=== PATIENT | female | born 1975 | race Caucasian/White ===

== ENCOUNTER → 2017-02-26 | Outpatient (CLI) | payer BC | END | disposition home or self-care (01) | LOC: LABMAIN 19:42 | PROVIDERS: ATTEND Obstetrics & Gynecology | DX: Z53.9 Procedure and treatment not carried out, unspecified reason (principal) ==

== ENCOUNTER 2017-03-06 06:32 | Day surgery (SDC) | payer BC ==
[2017-02-26 12:06] VITALS: BMI 35.5
--- NOTE | 2017-03-05 19:39 | P.HPOB ---
History of Present Illness H&P Date: 03/05/17 Chief Complaint: Menorrhagia with irregular cycle, family planning This is a 42-year-old female 2 para 2 who presents for dilation and curettage with hysteroscopy and NovaSure endometrial ablation along with gas manager scopic bilateral tubal ligation via fulguration. She is been having irregular bleeding since December. It is sometimes heavy and sometimes light that she always has to wear a pad. Her menses are occurring monthly lasting at least 7 days with 3 days of heavy flow that has worsened over the last year. She has to change a pad and tampon at least every 2 hours. She had an ultrasound done on 01/23/2017 that showed a uterus measuring 9 x 4.4 x 5.2 cm. There is an echogenic structure seen within the tip of the cervix measuring 1.4 x 1.6 x 1.7 cm that could represent a cervical polyp. Both ovaries were normal sized. She wishes definitive surgical treatment to control her heavy bleeding and irregular spotting. She also wishes permanent sterilization. Obstetrical history: . History of 2 vaginal deliveries. Gynecologic history: No history of sexual transmitted diseases. She currently uses withdrawal method for control. Social history: She is . 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 Review of Systems Constitutional: Denies chills, Denies fever Eyes: denies blurred vision, denies pain Ears, nose, mouth and throat: Denies headache, Denies sore throat Cardiovascular: Denies chest pain, Denies shortness of breath Respiratory: Denies cough Gastrointestinal: Denies abdominal pain, Denies diarrhea, Denies nausea, Denies vomiting Genitourinary: Reports dysmenorrhea, Reports menorrhagia Menstruation: Reports menses 8 or > days, Reports menses variable, Reports period heavy Musculoskeletal: Reports low back pain Integumentary: Denies pruritus, Denies rash Neurological: Denies numbness, Denies weakness Psychiatric: Denies anxiety, Denies depression Past Medical History Past Medical History: Hypertension History of Any Multi-Drug Resistant Organisms: None Reported Past Surgical History: Orthopedic Surgery Additional Past Surgical History / Comment(s): achilles tendon lengthening x 2 as and child; benign cyst removal from head Past Anesthesia/Blood Transfusion Reactions: No Reported Reaction Past Psychological History: No Psychological Hx Reported Smoking Status: Former smoker Past Alcohol Use History: None Reported Past Drug Use History: None Reported - Past Family History Mother Family Medical History: Deep Vein Thrombosis (DVT) Father Family Medical History: Cancer Additional Family Medical History / Comment(s): Liver CA Medications and Allergies Home Medications Medication Instructions Recorded Confirmed Type Losartan-Hctz 50-12.5 mg [Hyzaar 1 each PO DAILY 02/26/17 02/26/17 History 50-12.5] Multivitamin [Multivitamins Adult 1 each PO DAILY 02/26/17 02/26/17 History Gummies] Allergies Allergy/AdvReac Type Severity Reaction Status Date / Time No Known Allergies Allergy Verified 02/26/17 11:44 Exam Osteopathic Statement: *. No significant issues noted on an osteopathic structural exam other than those noted in the History and Physical/Consult. HEENT: Within normal limits Heart: Regular rate and rhythm Lungs: Clear to auscultation bilaterally Abdomen: Soft, nontender Pelvic exam: Uterus is small, mid position, with no adnexal masses or tenderness palpated. No cervical polyp is visualized. Extremities: Negative Homans Assessment and Plan (1) Menorrhagia with irregular cycle Status: Acute (2) Family planning Status: Acute Plan: Plan is to proceed with dilation and curettage with hysteroscopy and NovaSure endometrial ablation along with laparoscopic bilateral tubal ligation via fulguration. I have discussed the risks, benefits, and alternative therapies for the above- mentioned procedure and for both sedation/anesthesia as well as necessary blood products administration, if indicated, as they pertain to this patient. The patient has indicated her understanding and acceptance of the risks and procedures discussed.
[~2017-03-06 06:32] MED LIST: DEXAMETHASONE SOD PHOSPHATE 10 MG/ML 1 ML VIAL IV ONE; HYDROmorphone 0.5 MG/0.5 ML SYRINGE IVP PRN; LACTATED RINGERS 1,000 ML IV SCH; MIDAZOLAM 2 MG/2 ML VIAL IV PRN; Pre Op ABX Message 1 EACH MISC MISCELLANE ONE; SCOPOLAMINE 1.5MG/72HR PATCH TRANSDERM ONE
[2017-03-06] MEDS ORDERED: LIDOCAINE 1% 20 ML VIAL (10MG/ML) FOR IV START INTRADERMA ONE (06:55)
[2017-03-06] MEDS: ONDANSETRON 4 MG/2 ML VIAL IVP ONE ×2 (07:03→09:56)
[2017-03-06] MEDS ORDERED: GLYCOPYRROLATE 0.2 MG/ML 2 ML VIAL ONE (07:34)
[2017-03-06] MEDS ORDERED: KETOROLAC 30 MG/ML 1 ML VIAL ONE (07:34)
[2017-03-06] MEDS ORDERED: ROCURONIUM BROMIDE 10 MG/ML 10 ML VIAL IV ONE (07:34)
[2017-03-06] MEDS ORDERED: fentaNYL (PF) 50 MCG/ML 2 ML AMP ONE (07:34)
[2017-03-06] MEDS ORDERED: MIDAZOLAM 2 MG/2 ML VIAL ONE (07:34)
[2017-03-06] MEDS ORDERED: LIDOCAINE 1% INJ 10MG/ML (20 ML MDV) ONE (07:34)
[2017-03-06] MEDS ORDERED: NEOSTIGMINE 1 MG/ML 10 ML VIAL ONE (07:34)
[2017-03-06] MEDS ORDERED: PROPOFOL 10 MG/ML 20 ML VIAL IV ONE (07:34)
[2017-03-06] MEDS ORDERED: SUCCINYLCHOLINE CHLORIDE 100 MG/5 ML SYR IV ONE (07:34)
[2017-03-06] MEDS ORDERED: BUPIVACAINE (PF) 0.25% 30 ML VIAL SQ ONE ×2 (08:02→08:27)
[2017-03-06] MEDS ORDERED: LACTATED RINGERS 1,000 ML IV ONE ×2 (08:18)
--- NOTE | 2017-03-06 08:33 | P.OP ---
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 She is been having irregular bleeding since December. It is sometimes heavy and sometimes light that she always has to wear a pad. Her menses are occurring monthly lasting at least 7 days with 3 days of heavy flow that has worsened over the last year. She has to change a pad and tampon at least every 2 hours. She had an ultrasound done on 01/23/2017 that showed a uterus measuring 9 x 4.4 x 5.2 cm. There is an echogenic structure seen within the tip of the cervix measuring 1.4 x 1.6 x 1.7 cm that could represent a cervical polyp. Both ovaries were normal sized. She wishes definitive surgical treatment to control her heavy bleeding and irregular spotting. She also wishes permanent sterilization. Operative Findings: Uterus is anteverted, with no adnexal masses palpated. Cervix is sounded to 3 cm and uterus is sounded to 9 cm. Upon hysteroscopy, as slightly dyssynchronous endometrial pattern is noted with the left tubal ostia visualized in the right tubal ostia not visualized. No specific polyps or fibroids are visualized. A minimal amount of endometrial curettings is obtained. On laparoscopy, uterus tubes and ovaries appeared normal. Appendix is visualized and appears normal. Description of Procedure: The patient is taken to the operating room. She is placed in the dorsal lithotomy position after general anesthesia was given. She is prepped and draped in the normal sterile fashion. Bladder is drained with a catheter and then removed. Pelvic exam is performed under anesthesia. Uterus is found to be anteverted with no adnexal masses. She is placed in slight Trendelenburg position. A right angle retractor is used to visualize the cervix. The anterior lip of the cervix is grasped with a single-tooth tenaculum. Cervix is sounded to 3 cm. Uterus is sounded to 9 cm. Cervix is gently dilated with Moreno dilators until a hysteroscope could be passed. Hysteroscopy is performed using normal saline. The above noted findings are noted. Next a polyp forceps is introduced. And a minimal amount of tissue was obtained. Next medium-sized size sharp curette was placed. A minimal to moderate amount of endometrial curettings were obtained. Next NovaSure array was inserted into the endometrial cavity. Length was set at 6 cm and width was determined to be 3.4 cm. Next cavity assessment was completed and passed on the first try. Next NovaSure array was fired at 112 W for 82 seconds. Next the array was removed, inspected and then discarded. Next the hysteroscope was reinserted. Uniform charring was noted. Pictures were taken. Hysteroscope was removed. Next a kroner uterine manipulator is inserted through the cervix and the balloon is inflated. Single-tooth tenaculum was removed from the anterior lip of the cervix. Minimal bleeding was noted. All other instruments removed from the vagina. Gloves are changed and then attention is turned to the abdomen. The infraumbilical fold was grasped in transverse fashion with 2 Allis clamps. A small transverse incision was made with a scalpel. A hemostat was used to carry the incision down to the underlying layer of fascia. A towel clip was placed above the umbilicus for retraction. An 11 mm disposable bladeless trocar was then inserted into the peritoneal cavity under direct visualization. Once inside, pneumoperitoneum was achieved with CO2 gas. The insert was removed and the camera was placed. Intraperitoneal placement was confirmed. No bleeding was noted. Next the patient was placed in Trendelenburg position. A small stab incision was made suprapubically and a 5 mm disposable bladeless trocar was inserted into the peritoneal cavity under direct visualization. Once inside pelvic contents were inspected. Next a bipolar Kleppinger instrument was placed through the inferior trocar and the midportion of each tube was brought away from other structures and completely fulgurated on approximate 2-3 cm segment of each tube. Excellent hemostasis was noted. A picture was taken. Pneumoperitoneum was released after the inferior trocar was removed under direct visualization. The upper trocar was then removed. The fascial incision was closed with 0 Vicryl suture in interrupted [id number] stitch. The skin incisions were then closed with 4-0 Vicryl suture in a subcuticular fashion. Next the kroner uterine manipulator was removed. Minimal bleeding was noted. All sponge and needle counts are correct. The patient is then taken to recovery room in stable condition.
[2017-03-06 08:50] VITALS: TEMP 97
[2017-03-06] MEDS: MEPERIDINE 50 MG/ML SYRINGE IVP ONE ×2 (08:56→09:13)
[2017-03-06 09:28] VITALS: RESP 18
[2017-03-06 10:44] VITALS: BP 131/73; PULSE 63
== END 2017-03-06 10:51 | disposition home or self-care (01) ==
LOC: OR 06:32
PROVIDERS: ATTEND Obstetrics & Gynecology
DX: Z30.2 Encounter for sterilization (principal); N92.0 Excessive and frequent menstruation with regular cycle; N72 Inflammatory disease of cervix uteri; N85.00 Endometrial hyperplasia, unspecified; I10 Essential (primary) hypertension; Z87.891 Personal history of nicotine dependence; Z79.899 Other long term (current) drug therapy
CPT/HCPCS: 81025; 88305; 58670; 58563; J2250; J1100; J2710; J2175; J2405; J2001; J3010; J1885; J0330; J2704

== ENCOUNTER → 2019-03-21 | Outpatient (CLI) | payer BC ==
--- NOTE | 2019-03-21 08:56 | XR ---
EXAMINATION TYPE: XR foot complete bilateral DATE OF EXAM: 03/21/2019 CLINICAL HISTORY: Pain bilateral feet were healed. TECHNIQUE: Frontal, lateral, and oblique images of the bilateral feet are obtained. COMPARISON: None FINDINGS: Right foot shows moderate to severe inferior calcaneal spur. Small to moderate-sized superi or calcaneal spur with additional calcifications along the course of the Achilles tendon is likely ne ar the myotendinous junction. Left foot shows moderate to severe spurring inferiorly with small super ior spur with more focal calcification level of the distal Achilles tendon. There is flexion and varus positioning distal third through fifth toes on the left and flexion distal third through fifth toes on the right. Accessory ossicle is present near the navicular bone on the r ight and near cuboid bone on the left. Overlying soft tissues are unremarkable bilaterally. IMPRESSION: As above.
== END ==
LOC: RADXRYALE 08:37
PROVIDERS: ATTEND Family Medicine
DX: M77.32 Calcaneal spur, left foot (principal); M77.31 Calcaneal spur, right foot; M79.89 Other specified soft tissue disorders

== ENCOUNTER → 2022-02-21 | Outpatient (CLI) | payer BC ==
--- NOTE | 2022-02-21 16:14 | XR ---
EXAMINATION TYPE: XR abdomen 2V DATE OF EXAM: 02/21/2022 CLINICAL HISTORY: Right-sided pain TECHNIQUE: Supine and upright views of the abdomen are obtained. COMPARISON: None. FINDINGS: Scattered gas is seen in non-distended small bowel loops. Gas and fecal material is seen in non-distended colon and rectum. There is no visceromegaly, pneumoperitoneum, or abnormal calcifi cation appreciated. The lung bases are clear and the osseous structures are intact. IMPRESSION: Overall nonobstructive bowel gas pattern.
== END | disposition home or self-care (01) ==
LOC: RADXRYALE 15:44
PROVIDERS: ATTEND Physician Assistant Medical
DX: R10.11 Right upper quadrant pain (principal)
CPT/HCPCS: 74019

== ENCOUNTER → 2022-11-16 | Outpatient (CLI) | payer BC ==
--- NOTE | 2022-11-16 08:58 | XR ---
EXAMINATION TYPE: XR knee complete RT DATE OF EXAM: 11/16/2022 COMPARISON: NONE HISTORY: Right knee pain TECHNIQUE: Frontal, lateral and oblique images of the right knee are obtained. FINDINGS: There is no acute fracture/dislocation evident. The joint spaces appear within normal jaimes its. The overlying soft tissue appears unremarkable. Incidental fabella. IMPRESSION: There is no acute fracture or dislocation seen.
== END | disposition home or self-care (01) ==
LOC: RADXRYALE 08:43
PROVIDERS: ATTEND Physician Assistant
DX: M25.561 Pain in right knee (principal)